=== PATIENT | female | born 1990 | race Caucasian/White ===

== ENCOUNTER 2022-09-23 15:03 | Inpatient (IN) | payer BC, OTHER ==
[2022-09-23] MEDS ORDERED: Promethazine HCl 25 MG/ML VIAL IM PRN (19:40)
[2022-09-23] MEDS ORDERED: Acetaminophen 500 MG TAB PO PRN (19:40)
[2022-09-23] MEDS ORDERED: Ondansetron PF 4 MG/2 ML Vial IVP PRN (19:40)
[2022-09-23] MEDS ORDERED: Butorphanol Tartrate 1 MG/ML VIAL SLOW IVP PRN (19:40)
[2022-09-23] MEDS ORDERED: hydrALAZINE 20 MG/ML VIAL SLOW IVP PRN (19:40)
[2022-09-24] MEDS ORDERED: Lactated Ringer's 1,000 ML IV SCH (03:00)
[2022-09-24 03:45] VITALS: BMI 29.9
[2022-09-24] MEDS ORDERED: Oxytocin 10 UNITS/ML VIAL ONE (08:02)
[2022-09-24] MEDS ORDERED: Methylergonovine 0.2 MG/ML VIAL ONE (08:03)
[2022-09-24] MEDS ORDERED: Misoprostol 200 MCG TAB ONE (08:03)
[2022-09-24] MEDS ORDERED: Carboprost 250 MCG/ML AMP ONE (08:03)
[2022-09-24] MEDS ORDERED: Lidocaine 1% (PF) 30 ML VIAL ONE (09:19)
[2022-09-24] MEDS ORDERED: Benzocaine-Menthol 82.5 ML CAN TOP PRN (13:36)
[2022-09-24] MEDS ORDERED: Misoprostol 200 MCG TAB VAG PRN (13:36)
[2022-09-24] MEDS ORDERED: hydrALAZINE 20 MG/ML VIAL SLOW IVP PRN (13:36)
[2022-09-24] MEDS ORDERED: Methylergonovine 0.2 MG/ML VIAL IM PRN (13:36)
[2022-09-24] MEDS ORDERED: Bisacodyl 10 MG SUPP PR PRN (13:36)
[2022-09-24] MEDS ORDERED: Boostrix 0.5 ML (Tdap) VIAL (>/=7 yrs of age) IM ONE (13:36)
[2022-09-24] MEDS ORDERED: diphenhydrAMINE 25 MG CAP PO PRN (13:36)
[2022-09-24] MEDS ORDERED: Milk Of Magnesia 30 ML UDCUP PO PRN (13:36)
[2022-09-24] MEDS ORDERED: Promethazine HCl 25 MG/ML VIAL IM PRN (13:36)
[2022-09-24] MEDS ORDERED: Ondansetron PF 4 MG/2 ML Vial IVP PRN (13:36)
[2022-09-24] MEDS: Ibuprofen 800 MG TAB PO SCH ×3 (14:11→21:50)
[2022-09-24] MEDS: Ferrous Sulfate 325 MG TAB PO SCH (16:46)
[2022-09-24] MEDS: Docusate 100 MG CAP PO SCH (21:50)
[2022-09-25] MEDS: Ibuprofen 800 MG TAB PO SCH (05:13)
[2022-09-25 07:31] VITALS: BP 110/72; TEMP 97.8
[2022-09-25] MEDS ORDERED: Prenatal Vitamin 1 TAB PO SCH (09:00)
[2022-09-25] MEDS: Ferrous Sulfate 325 MG TAB PO SCH (09:36)
[2022-09-25] MEDS: Docusate 100 MG CAP PO SCH (09:36)
== END 2022-09-25 12:09 | disposition home or self-care (01) | DRG 807 ==
LOC: CSHLD/OP 15:03 → CSHLD 19:40 → UNDOADMIN 09-24 01:41 → CSHLD 09-24 01:41 → CSHPP 09-24 13:30
PROVIDERS: ADMIT Obstetrics & Gynecology; ATTEND Obstetrics & Gynecology
PROC: 10E0XZZ Delivery of Products of Conception, External Approach (ICD-10-PCS; principal; 2022-09-24)
PROC: 0HQ9XZZ Repair Perineum Skin, External Approach (ICD-10-PCS; 2022-09-24)
DX: O99.824 Streptococcus B carrier state complicating childbirth (principal); Z37.0 Single live birth; O76 Abnormality in fetal heart rate and rhythm complicating labor and delivery; Z3A.40 40 weeks gestation of pregnancy; O71.82 Other specified trauma to perineum and vulva; O70.0 First degree perineal laceration during delivery
CPT/HCPCS: 99285